=== PATIENT | male | born 1975 | race Caucasian/White ===

== ENCOUNTER 2016-12-04 20:53 | Emergency (ER) | payer BC ==
[~2016-12-04] VITALS: Ht 190.5 cm; Wt 113.4 kg
[2016-12-04 21:29] LABS: BASO % 1 % (0-3); EOS % 1 % (0-3); HEMATOCRIT 45.9 % (39.0-53.0); HEMOGLOBIN 15.7 g/dL (13.0-17.5); LYMPH # 2.1 x10^3/uL (1.0-4.8); LYMPH % 29 % (24-48); MEAN CORPUSCULAR HEMOGLOBIN 32 pg (25-35); MEAN CORPUSCULAR HGB CONC 34 g/dL (31-37); MEAN CORPUSCULAR VOLUME 95 fL (79-100); MONO % 7 % (0-9); NEUT % 63 % (31-73); PLATELET COUNT 198 x10^3/uL (140-400); RED BLOOD COUNT 4.85 x10^6/uL (4.30-5.70); RED CELL DISTRIBUTION WIDTH 13.9 % (11.5-14.5); WHITE BLOOD COUNT 7.4 x10^3/uL (4.0-11.0)
[2016-12-04] MEDS ORDERED: ASPIRIN 325 MG TABLET PO ONE (21:30)
[2016-12-04] MEDS ORDERED: NITROGLYCERIN SUBLINGUAL 0.4 MG BOTTLE OF 25. SL PRN (21:30)
[2016-12-04] MEDS ORDERED: MORPHINE SULFATE 4 MG/ML DISP.SYRIN. IV/SQ PRN (21:30)
[2016-12-04 21:40] LABS: CALCIUM 9.3 mg/dL (8.5-10.1); CREATININE 1.1 mg/dL (0.7-1.3); GFR 73.8; POTASSIUM 3.5 mmol/L (3.5-5.1)
[2016-12-04 21:46] LABS: ALBUMIN 3.9 g/dL (3.4-5.0); ALBUMIN/GLOBULIN RATIO 1.2 (1.0-1.7); TOTAL BILIRUBIN 0.5 mg/dL (0.2-1.0); TOTAL PROTEIN 7.1 g/dL (6.4-8.2)
[2016-12-04 21:47] LABS: PROTHROMBIN TIME PATIENT 12.4 SEC (11.7-14.0)
[2016-12-05] VITALS: BP 119/72
--- NOTE | 2016-12-05 00:09 | PHYS DOC ---
Past Medical History Past Medical History: Asthma, Hypertension, Kidney Stone Past Surgical History: Other Additional Past Surgical Histo: kidney stones Alcohol Use: Occasionally Drug Use: None Adult General Chief Complaint Chief Complaint: CHEST PAIN HPI HPI Patient is a 41 year old male who presents with chest pain. Patient reports onset of sharp substernal pain about one hour prior to arrival while at rest. Denies radiation of pain. Denies shortness of breath, nausea, diaphoresis. Denies fevers or chills, cough, lower extremity pain or swelling. Reports history of previous similar pain but has never sought medical treatment until today. Reports history of hypertension. Denies known cardiac or pulmonary history. Nonsmoker. Family history of CAD in his father with [place] at age less than 50. Review of Systems Review of Systems Constitutional: Denies fever or chills Eyes: Denies change in visual acuity HENT: Denies nasal congestion or sore throat Respiratory: Denies cough or shortness of breath Cardiovascular: Reports chest pain, denies edema GI: Denies abdominal pain, nausea, vomiting, bloody stools or diarrhea Musculoskeletal: Denies back pain or joint pain Integument: Denies rash or skin lesions Neurologic: Denies headache, focal weakness or sensory changes Current Medications Current Medications Current Medications Medications (Trade) Dose Ordered Sig/Jose De Jesus Start Time Stop Time Status Last Admin Dose Admin Aspirin (Chuck Aspirin) 325 mg 1X ONCE 12/04/16 21:30 12/04/16 21:31 DC 12/04/16 21:33 325 MG Morphine Sulfate 4 mg PRN Q15MIN PRN 12/04/16 21:30 12/05/16 00:42 DC 12/04/16 21:34 4 MG Nitroglycerin (Nitrostat) 0.4 mg PRN Q5MIN PRN 12/04/16 21:30 12/05/16 00:42 DC 12/04/16 21:35 0.4 MG Allergies Allergies Allergies Coded Allergies Type Severity Reaction Last Updated Verified No Known Drug Allergies 12/04/16 No Physical Exam Physical Exam Constitutional: Obese, no acute distress, non-toxic appearance. HENT: Normocephalic, atraumatic, bilateral external ears normal, oropharynx moist, nose normal. Eyes: conjunctiva normal, no discharge. Neck: supple, no stridor. Cardiovascular: RRR, no murmurs, no edema. Lungs & Thorax: LCTAB, no wheezing, no respiratory distress. No reproducible tenderness with palpation of her anterior chest wall. Abdomen: soft, nontender, nondistended. Skin: Warm, dry, no erythema, no rash. Back: No tenderness. Extremities: No tenderness, no edema. No calf tenderness or swelling. Neurologic: Alert and oriented X 3, no focal deficits noted. Psychologic: Affect normal, judgement normal, mood normal. Current Patient Data Vital Signs Vital Signs Date Time Temp Pulse Resp B/P (MAP) Pulse Ox O2 Delivery O2 Flow Rate FiO2 12/05/16 00:00 93 119/72 (88) 95 Room Air 12/04/16 21:34 18 12/04/16 21:00 98.3 98.3 Lab Values Laboratory Tests Test 12/04/16 21:05 12/04/16 23:06 White Blood Count 7.4 x10^3/uL (4.0-11.0) Red Blood Count 4.85 x10^6/uL (4.30-5.70) Hemoglobin 15.7 g/dL (13.0-17.5) Hematocrit 45.9 % (39.0-53.0) Mean Corpuscular Volume 95 fL (79-100) Mean Corpuscular Hemoglobin 32 pg (25-35) Mean Corpuscular Hemoglobin Concent 34 g/dL (31-37) Red Cell Distribution Width 13.9 % (11.5-14.5) Platelet Count 198 x10^3/uL (140-400) Neutrophils (%) (Auto) 63 % (31-73) Lymphocytes (%) (Auto) 29 % (24-48) Monocytes (%) (Auto) 7 % (0-9) Eosinophils (%) (Auto) 1 % (0-3) Basophils (%) (Auto) 1 % (0-3) Neutrophils # (Auto) 4.6 x10^3uL (1.8-7.7) Lymphocytes # (Auto) 2.1 x10^3/uL (1.0-4.8) Monocytes # (Auto) 0.5 x10^3/uL (0.0-1.1) Eosinophils # (Auto) 0.1 x10^3/uL (0.0-0.7) Basophils # (Auto) 0.0 x10^3/uL (0.0-0.2) Prothrombin Time 12.4 SEC (11.7-14.0) Prothrombin Time INR 1.0 (0.8-1.1) PTT 27 SEC (24-38) D-Dimer (Malika) 0.27 ug/mlFEU (0.00-0.50) Sodium Level 141 mmol/L (136-145) Potassium Level 3.5 mmol/L (3.5-5.1) Chloride Level 103 mmol/L (98-107) Carbon Dioxide Level 32 mmol/L (21-32) Anion Gap 6 (6-14) Blood Urea Nitrogen 11 mg/dL (8-26) Creatinine 1.1 mg/dL (0.7-1.3) Estimated GFR (Cockcroft-Gault) 73.8 BUN/Creatinine Ratio 10 (6-20) Glucose Level 98 mg/dL (70-99) Calcium Level 9.3 mg/dL (8.5-10.1) Total Bilirubin 0.5 mg/dL (0.2-1.0) Aspartate Amino Transferase (AST) 24 U/L (15-37) Alanine Aminotransferase (ALT) 48 U/L (16-63) Alkaline Phosphatase 62 U/L (46-116) Troponin I Quantitative < 0.017 ng/mL (0.000-0.055) < 0.017 ng/mL (0.000-0.055) JC-Cow-Q-Type Natriuretic Peptide 49 pg/mL (0-124) Total Protein 7.1 g/dL (6.4-8.2) Albumin 3.9 g/dL (3.4-5.0) Albumin/Globulin Ratio 1.2 (1.0-1.7) Laboratory Tests 12/04/16 21:05 Laboratory Tests 12/04/16 21:05 EKG EKG interpreted by me: 2057 NSR rate 94, no acute ST/T wave changes, normal intervals, no ectopy. interpreted by me: 2315 NSR rate 97, no acute ST/T wave changes, normal intervals, no ectopy.[] Radiology/Procedures Radiology/Procedures CXR: interpreted by me: poss cardiomegaly though poor inspiratory effort, no infiltrate, no pneumothorax.[] Course & Med Decision Making Course & Med Decision Making Pertinent Labs and Imaging studies reviewed. (See chart for details) The patient presents with chest pain. Gave aspirin upon arrival. Gave nitro & morphine. Pain improved. Obtained labs, EKG, CXR. Repeated troponin & EKG. All negative. Patient felt better & requested discharge home. HEART score is 1 , low risk. PERC was 1 because of elevated heart rate, d dimer negative, HR improved to < 100 with treatment of pain, will not pursue further workup. He has a lot of stress at home lately. Recommend rest, tylenol/ibuprofen for pain. Follow up with PCP or Dr. Lezama in cardiology clinic in 2-3 days. Come back for severe chest pain or shortness of breath, or any otherwise worsening condition. Discharged home in stable condition. [] Dragon Disclaimer Dragon Disclaimer This electronic medical record was generated, in whole or in part, using a voice recognition dictation system. Departure Departure Impression: Primary Impression: Chest pain Disposition: ADMITTED INPATIENT Condition: STABLE Referrals: ANNA MILLER MD (PCP) JACKIE LEZAMA MD Patient Instructions: Chest Pain (Nonspecific), [id number] Additional Instructions: You were seen in the emergency department today for chest pain. Tests here did not show serious cause of symptoms. Please rest, take Tylenol or ibuprofen for pain, try to minimize stress. Follow-up with primary care physician or cardiology within 2-3 days if symptoms continue. Return to the emergency department for severe chest pain or shortness of breath, any otherwise worsening condition. TAMMIE HOFFMAN MD Dec 05, 2016 00:09
--- NOTE | 2016-12-05 07:34 | RAD ---
Indication chest pain. A single view of the chest was obtained. No prior imaging is available. The heart, pulmonary vessels and mediastinum appear normal. The lungs are clear. There is no pleural fluid or pneumothorax. The visualized bony structures appear grossly intact. IMPRESSION: No acute or focal process is seen in the chest
--- NOTE | 2016-12-05 16:17 | EKG ---
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
--- NOTE | 2016-12-05 16:18 | EKG ---
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
== END 2016-12-05 00:19 | disposition other institution (70) ==
LOC: ER 20:53
DX: R07.2 Precordial pain (principal); I10 Essential (primary) hypertension; J45.909 Unspecified asthma, uncomplicated; Z87.442 Personal history of urinary calculi; Z82.49 Family history of ischemic heart disease and other diseases of the circulatory system
CPT/HCPCS: 36415; 71010; 80053; 83880; 84484; 85027; 85379; 85610; 85730; 93005; 96374; 99285; J2270

== ENCOUNTER → 2017-06-03 | Outpatient (CLI) | payer BC ==
[~2017-06-03] MED LIST: DEXAMETHASONE SOD PHOS 20 MG/5 ML VIAL.
[2017-06-03] MEDS: methylPREDNISolone ACETATE 40 MG/ML VIAL. INT ART (15:36)
[2017-06-03] MEDS: GADOBUTROL 7.5 MMOL/7.5 ML VIAL INT ART (15:36)
[2017-06-03] MEDS: LIDOCAINE 1% Multi-Dose 20 ML VIAL. ID (15:36)
[2017-06-03] MEDS: BUPIVACAINE MPF 0.5% 10 ML VIAL for KCIC. IJ (15:36)
[2017-06-03] MEDS: IOHEXOL 300 MG/ML 50 ML VIAL. INT ART (15:36)
== END | disposition home or self-care (01) ==
LOC: KCIC 13:30
DX: M48.061 Spinal stenosis, lumbar region without neurogenic claudication (principal); M25.78 Osteophyte, vertebrae
CPT/HCPCS: 72148; 73525; 73722; A9585; J1030; Q9967

== ENCOUNTER 2017-06-04 16:51 | Emergency (ER) | payer BC ==
[2017-06-04] MEDS ORDERED: DEXAMETHASONE SOD PHOS 20 MG/5 ML VIAL. IM (18:15)
[2017-06-04] MEDS ORDERED: MORPHINE SULFATE 10 MG/ML VIAL. IM (18:15)
[2017-06-04] MEDS ORDERED: diazePAM 5 MG TABLET PO (18:15)
[2017-06-04] MEDS ORDERED: KETOROLAC 60 MG/2 ML INJ. IM (18:15)
[2017-06-04] MEDS ORDERED: HYDROcodone/APAP 5/325MG 1 TAB TABLET PO (18:45)
[2017-06-04] MEDS ORDERED: ONDANSETRON ODT 4 MG TAB.RAPDIS. (18:51)
[2017-06-04] MEDS: HYDROcodone/APAP 5/325MG 1 TAB TABLET PO (18:53)
[2017-06-04] MEDS: ONDANSETRON ODT 4 MG TAB.RAPDIS. PO (18:53)
== END 2017-06-04 19:13 | disposition home or self-care (01) ==
LOC: ER 16:51
DX: M47.816 Spondylosis without myelopathy or radiculopathy, lumbar region (principal); M54.42 Lumbago with sciatica, left side; J45.909 Unspecified asthma, uncomplicated; I10 Essential (primary) hypertension; G89.29 Other chronic pain; Z87.442 Personal history of urinary calculi
CPT/HCPCS: 99283; Q0162